=== PATIENT | female | born 1980 | race Two or more races ===

== ENCOUNTER 2024-09-15 14:51 | Inpatient (IN) | payer MEDICAID, OTHER ==
[~2024-09-15] VITALS: Ht 152.4 cm; Wt 59.0 kg
[2024-09-15] MEDS: SODIUM CHLORIDE 0.9% 1,000 ML IV ONE ×2 (02:00→18:52)
--- NOTE | 2024-09-15 15:46 | ED.PDOC ---
General HPI Comments HPI: Poor Historian. 44-year-old female presents to emergency department for evaluation of right sided pain below her right ribcage area radiating to her right abdomen constant. No alleviating or precipitating factors. Onset of symptoms was sudden today at two in the afternoon. Patient was brought in by ambulance for further evaluation. Patient had similar episodes many years ago. Past Medical History: Kidney stones, anemia, asthma Past Surgical History: , hysterectomy, hernia repair No known drug allergies REVIEW OF SYSTEMS: CONSTITUTIONAL: Denies acute: fever, diaphoresis, chills, HEAD: Denies acute: headache, photophobia Eyes: Denies acute: Double vision, vision loss, eye pain, eye discharge. EARS: Denies acute: tinnitus, hearing loss, ear discharge, ear pain, THROAT: Denies acute: sore throat, swelling, difficulty swallowing , pain with swallowing, change in voice. NECK: Denies acute: neck pain, neck swelling, stiff neck. HEART: Denies acute : chest pain, palpitations, LUNGS: Denies acute: SOB, wheezing, cough, hemoptysis ABDOMEN: Denies acute: abdominal pain, Nausea, Vomiting, diarrhea, melena , hematemesis, hematochezia SKIN: Denies acute: rash, redness, lesions, itchiness. EXTREMITIES: Denies acute: calf pain, numbness, tingling, weakness, denies pain in extremity. Denies acute: Low back pain. Neuro: Denies acute: focal neurological deficit, motor or sensory focal neurological deficit, tremors, seizure like activity, confusion, dizziness, change in mental status, loss of bowel or bladder function, cauda equina like symptoms. : Denies acute: dysuria, hematuria, increase in urinary frequency. PSYCH: Denies acute: hallucination, suicidal ideation, homicidal ideation. FEMALE: Denies acute: abnormal vaginal bleeding, foul odor, unusual discharge. PHYSICAL EXAM: General: ----moderate----acute distress, awake and alert. Head: normocephalic, atraumatic. Neck: supple, trachea is midline, no swelling. Throat: Normal phonation. Eyes:, no erythema, no purulent discharge, no proptosis, no icterus. Heart: regular rate, regular rhythm, no significant murmur appreciated. Lungs: no apparent respiratory distress, Able to speak in full sentences. No wheezing, no rhonchi, no crackles. No stridors Clear to auscultation bilaterally. Abdomen: Right-sided abdominal tender to palpation, non distended, soft, no guarding, no rebound, + bowel sounds. Neuro: Awake, Alert, oriented to name, self, situation, follows commands GCS=15. Speech is normal. Skin: no petechia, no purpura, no cyanosis, non-pale, not jaundice. Lower extremities: --no - Pitting edema no deformity, no focal swelling, no calf TTP. Makes eye contact. moves all four extremities. Face: no apparent facial droop. Right CVA tenderness to percussion ED COURSE: Chief Complaint: Flank Pain Time Seen by MD: 15:19 Reviewed notes: Nurses Notes, Allergies Allergies: Coded Allergies: NO KNOWN ALLERGIES (Unverified , 09/15/24) Information Source: Patient Mode of Arrival: EMS Was a procedure done? Was a procedure done?: No Differential Diagnosis Kidney stone (Female): Other (Flank Pain;DDX include Nephrolethiasis, obstructive uropathy, kidney cancer, renal infarct, intraabdominal neoplasm, lower lobe pneumonia, retroperitoneal hemorrhage, pancreatitis, aneurysm, dissection, musculoskeletal, rib contusion/trauma, hematoma, PYLONEPHRITIS, muscle strain, spinal disease. IN A FEMALE) X-Ray, Labs, Meds, VS Vital Signs Date Time Temp Pulse Resp B/P (MAP) Pulse Ox O2 Delivery O2 Flow Rate FiO2 09/15/24 21:07 97.9 69 18 141/82 (101) 100 97.9 09/15/24 19:43 97.8 72 18 141/78 (99) 100 97.8 09/15/24 19:43 72 18 99 Room Air 09/15/24 18:54 130/74 09/15/24 17:07 97.7 85 18 124/74 (91) 98 97.7 09/15/24 14:58 98.1 82 18 132/86 (101) 98 98.1 Lab Test 09/15/24 15:53 09/15/24 15:45 Range/Units White Blood Count 6.3 4.4-10.8 10^3/uL Red Blood Count 4.70 4.0-5.20 10^6/uL Hemoglobin 14.3 12.2-16.2 g/dL Hematocrit 41.1 36.0-46.0 % Mean Corpuscular Volume 87.4 80.0-100.0 fL Mean Corpuscular Hemoglobin 30.4 28.0-32.0 pg Mean Corpuscular Hemoglobin Concent 34.8 32.0-36.0 g/dL Red Cell Distribution Width 13.0 11.8-14.3 % Platelet Count 201 140-450 10^3/uL Mean Platelet Volume 7.9 6.9-10.8 fL Neutrophils (%) (Auto) 64.7 37.0-80.0 % Lymphocytes (%) (Auto) 24.7 10.0-50.0 % Monocytes (%) (Auto) 8.5 0.0-12.0 % Eosinophils (%) (Auto) 1.7 0.0-7.0 % Basophils (%) (Auto) 0.4 0.0-2.0 % Neutrophils # (Auto) 4.1 1.6-8.6 10 ^3/uL Lymphocytes # (Auto) 1.6 0.4-5.4 10 ^3/uL Monocytes # (Auto) 0.5 0-1.3 10 ^3/uL Eosinophils # (Auto) 0.1 0-0.8 10 ^3/uL Basophils # (Auto) 0 0-0.2 10 ^3/uL Nucleated Red Blood Cells 0.1 % Sodium Level 140 136-145 mmol/L Potassium Level 4.0 3.5-5.1 mmol/L Chloride Level 108 H 98-107 mmol/L Carbon Dioxide Level 22 20-31 mmol/L Anion Gap 10 5-15 Blood Urea Nitrogen 15 9-23 mg/dL Creatinine 0.63 0.550-1.02 mg/dL Glomerular Filtration Rate Calc 114 >90 mL/min BUN/Creatinine Ratio 23.8 H 10.0-20.0 Serum Glucose 92 74-106 mg/dL Lactic Acid Level 0.6 0.4-2.0 mmol/L Calcium Level 9.6 8.7-10.4 mg/dL Total Bilirubin 0.4 0.2-1.0 mg/dL Aspartate Amino Transferase (AST) 14 13-40 U/L Alanine Aminotransferase (ALT) 17 7-40 U/L Alkaline Phosphatase 59 46-116 U/L Troponin I High Sensitivity 3 L </=34 ng/L Total Protein 7.4 5.7-8.2 g/dL Albumin 4.8 3.2-4.8 g/dL Lipase 245 H 12-53 U/L Urine Color Light-yellow Yellow Urine Clarity Clear Clear Urine pH 6.5 5.0-9.0 Urine Specific [place] 1.012 1.001-1.035 Urine Protein Negative Negative Urine Ketones Negative Negative Urine Blood Negative Negative /uL Urine Nitrite Negative Negative Urine Bilirubin Negative Negative Urine Urobilinogen Normal Negative mg/dL Urine Leukocyte Esterase Negative Negative /uL Urine RBC <1 0 - 4 /hpf Urine Microscopic WBC < 1 0-5 /HPF Urine Squamous Epithelial Cells Few <5 /hpf Urine Bacteria Few H None Seen /hpf Urine Mucus Few None Seen Urine Glucose Normal Normal mg/dL Current Medications Medications (Trade) Dose Ordered Sig/Massimo Route Start Time Stop Time Status Last Admin Sodium Chloride 1,000 ml @ 1,000 mls/hr Q1H ONCE IV 09/15/24 15:45 09/15/24 16:44 DC 09/15/24 18:52 Fentanyl Citrate 100 mcg ONCE ONCE IV 09/15/24 17:15 09/15/24 17:54 DC 09/15/24 18:54 Ceftriaxone Sodium 50 ml @ 100 mls/hr ONCE ONCE IV 09/15/24 20:15 09/15/24 20:44 DC 09/15/24 23:01 [place] [address] Ph: [phone] DIAGNOSTIC IMAGING Diagnostic Imaging Report : [id number] Signed PATIENT: HUONG WILLS ACCT: [id number] UNIT: [id number] : 1980 LOC: ER ROOM / BED: / AGE / SEX: 44 / F ADM STATUS: REG ER SERVICE [id number] ORDERING PHYSICIAN: JENNIFER RAMIREZ DO PROCEDURE(s): ABPL - CT AB PEL WO CON-NO ORAL OR IV REASON: R FLANK ABD PAIN ORDER NUMBER(s): [id number], ACCESSION NUMBER(s): [id number] EXAM: CT CT AB PEL WO CON-NO ORAL OR IV HISTORY: R FLANK ABD PAIN COMPARISON: None TECHNIQUE: Helical CT images of the abdomen and pelvis were performed without IV contrast. Sagittal and coronal reformatted images were obtained. This CT exam was performed using one or more of the following dose reduction techniques: Automated exposure control, adjustment of the mA and/or kv according to patient size, or the use of iterative reconstruction techniques. Radiation Dose: Abdomen/Pelvis: CTDIvol 5.72 mGy, DLP 268.06 mGy*cm. FINDINGS: CT abdomen: The lung bases are clear. The heart is not enlarged. The noncontrast liver, spleen, gallbladder, pancreas, kidneys, and adrenal glands are unremarkable. No abdominal aortic aneurysm. There is fat stranding deep to the umbilicus (images 84-93, series 5). CT pelvis: No abnormal bowel dilatation, free air, or free fluid. The appendix and urinary bladder are unremarkable. The uterus is surgically absent. IMPRESSION: 1. Fat stranding deep to the umbilicus may be due to postoperative scarring related to prior umbilical herniorrhaphy versus active inflammation. Correlate with focal tenderness. 2. Postoperative changes of hysterectomy. 3. No evidence of bowel obstruction, urinary tract obstruction, acute appendicitis, or other acute process in the abdomen or pelvis. ATED BY: PAULIE GOLDMAN MD DICTATED DATE/TIME: 09/15/24 162 SIGNED BY: PAULIE GOLDMAN MD SIGNED DATE/TIME: 09/15/241628 CC: Time of 1ST Reevaluation: 23:53 Reevaluation 1ST: Improved Patient Education/Counseling: Diagnosis, Treatment Family Education/Counseling: No Family Present Comments Patient presented with the above HPI.----abdominal/flank pain--workup was initiated. patient was found with the above mentioned diagnosis. the following medications were ordered: please refer to order lists of meds and tests obtained by myself Dr. Ramirez. Patient ED course and VS have been stabilized. Patient has been reassessed in the ED and remained in a stable condition. Pertinent incidental findings were discussed with the patient and/or family. Patient/family voices understanding and is agreeable with plan. Patient has been observed in the ED adequate length of time to insure improvement/stability. Escalation of care considered: Consideration of escalation to observation or admission Patient was ADMITTED to the medicine team for further evaluation and treatment of their presentation. All the reports of any imaging studies that were ordered by myself were reviewed by myself. Departure 1 Departure Time of Disposition: 17:10 Impression: Primary Impression: Acute pancreatitis Disposition: 09 ADMITTED INPATIENT Admit to: Tele Condition: Guarded Discharged With: Self Critical Care Note Critical Care Time?: Yes (45 min-critical care time only) I personally scribed for JENNIFER RAMIREZ DO ([email or web address]) on 09/15/24 at 21:46. Electronically submitted by Woo Carter ([email or web address]). JENNIFER RAMIREZ DO Sep 15, 2024 15:46
[2024-09-15 16:20] LABS: Basophils # (auto) 0 10 ^3/uL (0-0.2); Basophils % (auto) 0.4 % (0.0-2.0); Eosinophils # (auto) 0.1 10 ^3/uL (0-0.8); Eosinophils % (auto) 1.7 % (0.0-7.0); Hematocrit 41.1 % (36.0-46.0); Hemoglobin 14.3 g/dL (12.2-16.2); Lymphocytes # (auto) 1.6 10 ^3/uL (0.4-5.4); Lymphocytes % (auto) 24.7 % (10.0-50.0); Mean Corpuscular Hemoglobin 30.4 pg (28.0-32.0); Mean Corpuscular Hgb Conc. 34.8 g/dL (32.0-36.0); Mean Corpuscular Volume 87.4 fL (80.0-100.0); Monocytes # (auto) 0.5 10 ^3/uL (0-1.3); Monocytes % (auto) 8.5 % (0.0-12.0); Neutrophils # (auto) 4.1 10 ^3/uL (1.6-8.6); Neutrophils % (auto) 64.7 % (37.0-80.0); Nucleated Red Blood Cells % 0.1 %; Platelet Count (auto) 201 10^3/uL (140-450); White Blood Cell 6.3 10^3/uL (4.4-10.8)
[2024-09-15 16:31] LABS: Alanine Aminotransferase 17 U/L (7-40); Albumin 4.8 g/dL (3.2-4.8); Alkaline Phosphatase 59 U/L (46-116); Anion Gap 10 (5-15); Aspartate Aminotransferase 14 U/L (13-40); BUN/Creatinine Ratio 23.8 (10.0-20.0); Bilirubin, Total 0.4 mg/dL (0.2-1.0); Blood Urea Nitrogen 15 mg/dL (9-23); Calcium 9.6 mg/dL (8.7-10.4); Carbon Dioxide 22 mmol/L (20-31); Glucose 92 mg/dL (74-106); Sodium 140 mmol/L (136-145); Total Protein 7.4 g/dL (5.7-8.2)
--- NOTE | 2024-09-15 16:32 | DVH ---
EXAM: CT CT AB PEL WO CON-NO ORAL OR IV HISTORY: R FLANK ABD PAIN COMPARISON: None TECHNIQUE: Helical CT images of the abdomen and pelvis were performed without IV contrast. Sagittal a nd coronal reformatted images were obtained. This CT exam was performed using one or more of the foll owing dose reduction techniques: Automated exposure control, adjustment of the mA and/or kv according to patient size, or the use of iterative reconstruction techniques. Radiation Dose: Abdomen/Pelvis: CTDIvol 5.72 mGy, DLP 268.06 mGy*cm. FINDINGS: CT abdomen: The lung bases are clear. The heart is not enlarged. The noncontrast liver, spleen, gallb ladder, pancreas, kidneys, and adrenal glands are unremarkable. No abdominal aortic aneurysm. There i s fat stranding deep to the umbilicus (images 84-93, series 5). CT pelvis: No abnormal bowel dilatation, free air, or free fluid. The appendix and urinary bladder ar e unremarkable. The uterus is surgically absent. IMPRESSION: 1. Fat stranding deep to the umbilicus may be due to postoperative scarring related to prior umbilica l herniorrhaphy versus active inflammation. Correlate with focal tenderness. 2. Postoperative changes of hysterectomy. 3. No evidence of bowel obstruction, urinary tract obstruction, acute appendicitis, or other acute pr ocess in the abdomen or pelvis.
[2024-09-15 16:33] LABS: Chloride 108 mmol/L (98-107); Lipase 245 U/L (12-53)
[2024-09-15 16:45] LABS: Urine Bacteria FEW /hpf (None Seen); Urine Blood Negative /uL (Negative); Urine Clarity Clear (Clear); Urine Color Light-Yellow (Yellow); Urine Mucus FEW (None Seen); Urine Protein, UAD Negative (Negative); Urine Specific Gravity 1.012 (1.001-1.035); Urine Squamous Epithelial Cell FEW /hpf (<5); Urine Urobilinogen Normal (Negative); Urine WBC < 1 /HPF (0-5); Urine pH 6.5 (5.0-9.0)
[2024-09-15] MEDS: fentaNYL CITRATE 100 MCG/2 ML VL IV ONE (18:54)
[2024-09-15] MEDS: cefTRIAXone 1GM/50ML D5W 50 ML IV ONE (23:01)
--- NOTE | 2024-09-15 23:53 | DVH ---
Procedure: XY KUB ABDOMEN SINGLE VIEW Exam Date: 09/15/2024 11:39 PM History: RUQ pain, IBD, r/o perforation Comparison Study: None Technique: AP of the chest AP upright of the abdomen AP supine of the abdomen Findings / IMPRESSION: Nonobstructive bowel-gas pattern. Lung bases are clear. Mild fecal retention throughout the colon. N o radiopaque foreign objects. No acute osseous abnormalities. No evidence of pneumoperitoneum.
[2024-09-15 23:56] VITALS: BP 123/75; PULSE 72; RESP 17; TEMP 97.5; O2SAT 100
[2024-09-16] VITALS (8 sets, daily range): BP systolic 112–131; BP diastolic 73–87; PULSE 61–78; RESP 16–20; TEMP 96.1–97.7; O2SAT 98–100
--- NOTE | 2024-09-16 00:13 | DVH ---
EXAMINATION: XY R RIB XRAY INDICATION: right lower chest pain COMPARISON: None TECHNIQUE: Frontal view of the chest and 2 views of the right ribs history FINDINGS: No focal consolidation, pleural effusion or significant pneumothorax. Normal cardiomediastinal silhou ette. No displaced right rib fracture. IMPRESSION: 1. No acute cardiopulmonary disease. No displaced right rib fracture.
--- NOTE | 2024-09-16 01:37 | DVHHPRES ---
History of Present Illness Resident Creating Document: JOSEFINALEONARDGEGE RESIDENT History of Present Illness Patient is a 44-year-old female with a history of kidney stones presented to the ED with a chief complaint of right upper quadrant, right flank pain which started around 2:00 p.m. in the afternoon today. Patient was apparently well when she started to have sudden onset pain in the right upper quadrant, right flank, nonradiating was severe in intensity and constant not associated with any nausea or vomiting. Patient did not eat anything after the pain started until at night while she was in the hospital waiting where she had a burger, reported that she was given morphine before she ate and that the pain got slightly worse after eating. Patient denies any history of gallstones, alcohol use. She reports of acid reflux on and off, denies weight loss. She reports that she was having blood in and underwent a colonoscopy in May with the gastric group and it revealed hemorrhoids. She does have blood in the stools since the last 1 week, usually blood-streaked stools. Denies weight loss, fever, night sweats. Past medical history: Kidney stones, hemorrhoids, migraine headache Past surgical history: , partial hysterectomy for fibroids, ventral hernia repair Social history: Patient denies smoking, alcohol, drug use and lives with family Home medications: Ibuprofen for migraine Family history: No family history of colon cancer, inflammatory bowel disease Review of Systems Review of Systems Seen and examined at the bedside Reports of pain in the right upper quadrant, right upper flank which is exacerbated by taking deep breaths, no change with position Denies nausea or vomiting Allergies: Coded Allergies: NO KNOWN ALLERGIES (Unverified , 09/15/24) Medications Current Medications Medications Dose Ordered Sig/Massimo Route Start Time Stop Time Status Last Admin Dose Admin Morphine Sulfate 2 mg Q6HPRN PRN IV 09/15/24 23:30 Exam Vital Signs Vital Signs Date Time Temp Pulse Resp B/P (MAP) Pulse Ox O2 Delivery O2 Flow Rate FiO2 09/15/24 23:11 97.7 83 16 145/78 (100) 98 97.7 09/15/24 19:43 Room Air Exam Gen - no pallor, no icterus, no cyanosis, no clubbing, no LAD, no edema . Skin - Patients skin is warm and dry. HEENT - normocephalic, atraumatic, moist mucous membranes. Neck - full ROM, no LAD, no JVD Pulmonary - B/L equal breath sounds, no crackles, no wheezing, no stridor. cardiovascular - regular S1,S2 heard, no added sounds, no murmurs heard. peripheral pulses normal radial 2+, pedal 2+. GI - soft abdomen. Severe Tenderness to palpation in the right upper quadrant, right costophrenic angle. no hepatospleenomegaly. Bowel sounds normoactive Neurological - Patient is A/O X 3 . Bilateral upper extremity strength 5/5, malik ateral lower extremity strength 5/5, no facial droop, normal speech, no tremor, no sensory deficiets. Labs/Xrays Labs Test 09/15/24 15:53 09/15/24 15:45 Range/Units White Blood Count 6.3 4.4-10.8 10^3/uL Red Blood Count 4.70 4.0-5.20 10^6/uL Hemoglobin 14.3 12.2-16.2 g/dL Hematocrit 41.1 36.0-46.0 % Mean Corpuscular Volume 87.4 80.0-100.0 fL Mean Corpuscular Hemoglobin 30.4 28.0-32.0 pg Mean Corpuscular Hemoglobin Concent 34.8 32.0-36.0 g/dL Red Cell Distribution Width 13.0 11.8-14.3 % Platelet Count 201 140-450 10^3/uL Mean Platelet Volume 7.9 6.9-10.8 fL Neutrophils (%) (Auto) 64.7 37.0-80.0 % Lymphocytes (%) (Auto) 24.7 10.0-50.0 % Monocytes (%) (Auto) 8.5 0.0-12.0 % Eosinophils (%) (Auto) 1.7 0.0-7.0 % Basophils (%) (Auto) 0.4 0.0-2.0 % Neutrophils # (Auto) 4.1 1.6-8.6 10 ^3/uL Lymphocytes # (Auto) 1.6 0.4-5.4 10 ^3/uL Monocytes # (Auto) 0.5 0-1.3 10 ^3/uL Eosinophils # (Auto) 0.1 0-0.8 10 ^3/uL Basophils # (Auto) 0 0-0.2 10 ^3/uL Nucleated Red Blood Cells 0.1 % Sodium Level 140 136-145 mmol/L Potassium Level 4.0 3.5-5.1 mmol/L Chloride Level 108 H 98-107 mmol/L Carbon Dioxide Level 22 20-31 mmol/L Anion Gap 10 5-15 Blood Urea Nitrogen 15 9-23 mg/dL Creatinine 0.63 0.550-1.02 mg/dL Glomerular Filtration Rate Calc 114 >90 mL/min BUN/Creatinine Ratio 23.8 H 10.0-20.0 Serum Glucose 92 74-106 mg/dL Lactic Acid Level 0.6 0.4-2.0 mmol/L Calcium Level 9.6 8.7-10.4 mg/dL Total Bilirubin 0.4 0.2-1.0 mg/dL Aspartate Amino Transferase (AST) 14 13-40 U/L Alanine Aminotransferase (ALT) 17 7-40 U/L Alkaline Phosphatase 59 46-116 U/L Troponin I High Sensitivity 3 L </=34 ng/L Total Protein 7.4 5.7-8.2 g/dL Albumin 4.8 3.2-4.8 g/dL Lipase 245 H 12-53 U/L Urine Color Light-yellow Yellow Urine Clarity Clear Clear Urine pH 6.5 5.0-9.0 Urine Specific [place] 1.012 1.001-1.035 Urine Protein Negative Negative Urine Ketones Negative Negative Urine Blood Negative Negative /uL Urine Nitrite Negative Negative Urine Bilirubin Negative Negative Urine Urobilinogen Normal Negative mg/dL Urine Leukocyte Esterase Negative Negative /uL Urine RBC <1 0 - 4 /hpf Urine Microscopic WBC < 1 0-5 /HPF Urine Squamous Epithelial Cells Few <5 /hpf Urine Bacteria Few H None Seen /hpf Urine Mucus Few None Seen Urine Glucose Normal Normal mg/dL Assessment/Plan Assessment/Plan Intractable abdominal pain Possible acute pancreatitis Rule out acute cholecystitis Hematochezia ? Hemorrhoids ? Inflammatory bowel disease - CT abdomen pelvis without contrast shows fat stranding deep to the umbilicus, postoperative changes of hysterectomy, no acute process in the abdominopelvic - ultrasound right upper quadrant pending - KUB shows nonobstructive bowel gas pattern, no evidence of pneumoperitoneum, mild fecal retention throughout the colon - rib x-ray shows no acute fracture or dislocation - lipase elevated > 3 times normal - IV fluids - pain management - triglyceride level pending - stool occult blood pending - patient reported to have colonoscopy done in May 2024 with gastro group revealing hemorrhoids PUD prophylaxis: Protonix Goals of care discussed with the patient for over 29 minutes. Full code Time spent: 41 minutes Plan discussed with Dr. Dobbins Plan discussed with: Patient My Orders Orders - JUANI ROCHA Procedure Category Date Status Time Admit ADMIT 09/15/24 Transmitted 23:09 Stat Ekg For Chest CRISTELA 09/15/24 In Process Pain 23:09 Emergency Dysrhythmia CRISTELA 09/15/24 In Process Protocol 23:09 Kub Abdomen Single XY 09/15/24 Resulted View 23:09 R Rib Xray XY 09/15/24 Resulted 23:09 Npo (Nothing By DIET 09/16/24 Transmitted Mouth) Diet Breakfast Stool Occult Blood LAB 09/15/24 Logged 23:09 Morphine Sulfate PHA 09/15/24 In Process Injection 23:30 Date of Service: Sep 15, 2024 Billing Provider: KETAN DOBBINS MD Common Visit Codes: [id number] INP/OBS CARE (HIGH) Secondary Visit Codes: 03004-[id number] CARE PLAN 30 MINUTES JUANI ROCHA RESIDENT Sep 16, 2024 01:37
[2024-09-16] MEDS ORDERED: ONDANSETRON HCL 4 MG/2 ML VIAL IV PRN (01:45)
[2024-09-16 02:17] LABS: Alanine Aminotransferase 15 U/L (7-40); Albumin 4.2 g/dL (3.2-4.8); Alkaline Phosphatase 57 U/L (46-116); Anion Gap 4 (5-15); BUN/Creatinine Ratio 21.7 (10.0-20.0); Blood Urea Nitrogen 13 mg/dL (9-23); Calcium 9.7 mg/dL (8.7-10.4); Carbon Dioxide 28 mmol/L (20-31); Potassium 4.4 mmol/L (3.5-5.1); Sodium 143 mmol/L (136-145); Total Protein 6.8 g/dL (5.7-8.2); Triglycerides 107 mg/dL (< 150)
[2024-09-16 02:18] LABS: Aspartate Aminotransferase 12 U/L (13-40); Bilirubin, Total 0.3 mg/dL (0.2-1.0); Chloride 111 mmol/L (98-107); Cholesterol 165 mg/dL (< 200); Glucose 111 mg/dL (74-106); HDL Cholesterol 51 mg/dL (40-59); LDL Cholesterol 103 mg/dL (< 100)
[2024-09-16 03:06] LABS: Erythrocyte Sedimentation Rate 8 mm/hr (0-20)
[2024-09-16] MEDS: SODIUM CHLORIDE 0.9% 1,000 ML IV SCH ×2 (07:15→11:06)
--- NOTE | 2024-09-16 08:31 | DVH ---
US ABDOMEN LIMITED HISTORY: cholecystitis COMPARISON: None TECHNIQUE: Transverse and longitudinal grayscale and color sonographic images were obtained of the ab domen. FINDINGS: Liver: - Size: 14.3 cm - Echogenicity: Hyperechoic - Surface Contour: Smooth - Liver Lesion(s): None - Portal Vein: Patent and forward flowing. - Bile Ducts: Normal. The common bile duct measures 3.1 mm. Gallbladder: Stone. The sonographic calderon sign is negative. Pancreas: Portions not obscured by bowel gas are normal. Kidneys: - Right kidney size: 10.6 cm. There is no hydronephrosis, renal calculi, or mass lesion. Aorta and Inferior Vena Cava: The visualized portions of the abdominal aorta and intrahepatic vena ca va are normal. Other: None IMPRESSION: Cholelithiais. Mild hepatic steatosis.
[2024-09-16] MEDS: MORPHINE SULFATE 4 MG/ML SYR/VIAL IV PRN (09:17)
[2024-09-16] MEDS: PANTOPRAZOLE 40 MG/10 ML VIAL INJ IV SCH (11:05)
--- NOTE | 2024-09-16 16:16 | DVHPNRES ---
Progress Note Date Seen: Sep 16, 2024 Resident Creating Document: LORNA JOHNSON RESIDENT Medical Necessity Reason Pt with a Central, PICC or Fol: No Subjective Review of Systems 44-year-old female with a history of kidney stones presented to the ED with a chief complaint of right upper quadrant, right flank pain which started around 2:00 p.m. in the afternoon today. Patient was apparently well when she started to have sudden onset pain in the right upper quadrant, right flank, nonradiating was severe in intensity and constant not associated with any nausea or vomiting. Patient did not eat anything after the pain started until at night while she was in the hospital waiting where she had a burger, reported that she was given morphine before she ate and that the pain got slightly worse after eating. Patient denies any history of gallstones, alcohol use. She reports of acid reflux on and off, denies weight loss. She reports that she was having blood in and underwent a colonoscopy in May with the gastric group and it revealed hemorrhoids. She does have blood in the stools since the last 1 week, usually blood-streaked stools. Denies weight loss, fever, night sweats. Objective vital signs Vital Sign Date Time Temp Pulse Resp B/P (MAP) Pulse Ox O2 Delivery O2 Flow Rate FiO2 09/16/24 13:00 97.0 63 20 126/80 (95) 99 97.0 09/16/24 08:00 Room Air* 0 21 Total Intake and Output 09/15/24 09/15/24 09/16/24 15:00 23:00 07:00 Intake Total 1000 ml 50 ml Balance 1000 ml 50 ml medications Current Medications Medications Dose Ordered Sig/Massimo Route Start Time Stop Time Status Last Admin Dose Admin Morphine Sulfate 2 mg Q6HPRN PRN IV 09/15/24 23:30 09/16/24 09:17 2 MG Pantoprazole Sodium 40 mg DAILY IV 09/16/24 10:00 09/16/24 11:05 40 MG Ondansetron HCl 4 mg Q6HPRN PRN IV 09/16/24 01:45 Sodium Chloride 1,000 ml @ 120 mls/hr Q8H20M IV 09/16/24 09:45 09/16/24 11:06 120 MLS/HR Examination GENERAL: Not in acute distress. HEENT: EOMI, Moist mucous membranes. No scleral icterus. No cervical lymphadenopathy. LUNGS: Clear to auscultation bilaterally. No accessory muscle use. CARDIOVASCULAR: Regular rate and rhythm. No murmur. No JVD. ABDOMEN: Soft, nontender and nondistended. No palpable masses. EXTREMITIES: No edema. Nontender. SKIN: No rashes or lesions. Warm. NEUROLOGIC: Alert and oriented X3 laboratory and microbiology Laboratory Tests 09/16/24 01:51 09/15/24 15:53 Test 09/16/24 01:51 Range/Units Serum Glucose 111 H 74-106 mg/dL Problem List/Assessment/Plan Problem List/Assessment/Plan # Acute pancreatitis secondary to gallstone # Intractable abdominal pain # Rule out acute cholecystitis # Hematochezia ? Hemorrhoids ? Inflammatory bowel disease - CT abdomen pelvis without contrast shows fat stranding deep to the umbilicus, postoperative changes of hysterectomy, no acute process in the abdominopelvic - ultrasound right upper quadrant : shows gallstone, negative calderon's sign - KUB shows nonobstructive bowel gas pattern, no evidence of pneumoperitoneum, mild fecal retention throughout the colon - rib x-ray shows no acute fracture or dislocation - lipase elevated , 245 - IV fluids - Start Clear liq diet when pain subsided - pain management - triglyceride level : 107 - stool occult blood positive - patient reported to have colonoscopy done in May 2024 with gastro group revealing hemorrhoids PUD prophylaxis: Protonix Goals of care discussed with the patient for 23 minutes. Full code Plan discussed with Dr. Parham Plan discussed with: Patient Date of Service: Sep 16, 2024 Billing Provider: YESSI PARHAM MD Common Visit Codes: [id number] INP/OBS CARE(HIGH) LORNA JOHNSON RESIDENT Sep 16, 2024 16:16 YESSI PARHAM MD Sep 16, 2024 22:14
[2024-09-16] MEDS: IBUPROFEN 600 MG TAB PO PRN (20:23)
[2024-09-17 05:00] VITALS: BP 113/72; PULSE 78; RESP 14; TEMP 97; O2SAT 95
[2024-09-17 06:41] LABS: Basophils # (auto) 0 10 ^3/uL (0-0.2); Basophils % (auto) 0.5 % (0.0-2.0); Eosinophils # (auto) 0.2 10 ^3/uL (0-0.8); Eosinophils % (auto) 3.8 % (0.0-7.0); Hematocrit 39.8 % (36.0-46.0); Hemoglobin 13.7 g/dL (12.2-16.2); Lymphocytes # (auto) 1.4 10 ^3/uL (0.4-5.4); Lymphocytes % (auto) 32.3 % (10.0-50.0); Mean Corpuscular Hemoglobin 30.3 pg (28.0-32.0); Mean Corpuscular Hgb Conc. 34.3 g/dL (32.0-36.0); Mean Corpuscular Volume 88.3 fL (80.0-100.0); Monocytes # (auto) 0.4 10 ^3/uL (0-1.3); Monocytes % (auto) 9.7 % (0.0-12.0); Neutrophils # (auto) 2.3 10 ^3/uL (1.6-8.6); Neutrophils % (auto) 53.7 % (37.0-80.0); Platelet Count (auto) 180 10^3/uL (140-450); Red Blood Cells 4.51 10^6/uL (4.0-5.20); Red Cell Distribution Width 13.3 % (11.8-14.3); White Blood Cell 4.3 10^3/uL (4.4-10.8)
[2024-09-17 06:45] LABS: Potassium 4.5 mmol/L (3.5-5.1); Sodium 140 mmol/L (136-145)
[2024-09-17 06:46] LABS: Anion Gap 5 (5-15); Calcium 8.8 mg/dL (8.7-10.4); Carbon Dioxide 27 mmol/L (20-31)
[2024-09-17 06:50] LABS: Chloride 108 mmol/L (98-107)
[2024-09-17 06:51] LABS: BUN/Creatinine Ratio 8.8 (10.0-20.0); Glucose 81 mg/dL (74-106); Lipase 43 U/L (12-53)
[2024-09-17 07:01] LABS: Blood Urea Nitrogen 5 mg/dL (9-23)
[2024-09-17 09:00] VITALS: BP 125/75; PULSE 63; RESP 20; TEMP 97.9; O2SAT 99
[2024-09-17 13:00] VITALS: BP 128/78; PULSE 70; RESP 20; TEMP 96.9; O2SAT 99
[2024-09-17] MEDS ORDERED: PANT40TA2 PO (16:34)
--- NOTE | 2024-09-17 16:39 | DVHDSRES ---
Discharge Summary Date of Admission Resident Creating Document: LORNA JOHNSON RESIDENT Sep 15, 2024 at 23:09 Date of Discharge: Sep 17, 2024 Labs/Diagnostic Data: Laboratory Results Test 09/17/24 05:50 09/16/24 01:51 09/15/24 15:53 09/15/24 15:45 White Blood Count 4.3 10^3/uL (4.4-10.8) Red Blood Count 4.51 10^6/uL (4.0-5.20) Hemoglobin 13.7 g/dL (12.2-16.2) Hematocrit 39.8 % (36.0-46.0) Mean Corpuscular Volume 88.3 fL (80.0-100.0) Mean Corpuscular Hemoglobin 30.3 pg (28.0-32.0) Mean Corpuscular Hemoglobin Concent 34.3 g/dL (32.0-36.0) Red Cell Distribution Width 13.3 % (11.8-14.3) Platelet Count 180 10^3/uL (140-450) Mean Platelet Volume 8.1 fL (6.9-10.8) Neutrophils (%) (Auto) 53.7 % (37.0-80.0) Lymphocytes (%) (Auto) 32.3 % (10.0-50.0) Monocytes (%) (Auto) 9.7 % (0.0-12.0) Eosinophils (%) (Auto) 3.8 % (0.0-7.0) Basophils (%) (Auto) 0.5 % (0.0-2.0) Neutrophils # (Auto) 2.3 10 ^3/uL (1.6-8.6) Lymphocytes # (Auto) 1.4 10 ^3/uL (0.4-5.4) Monocytes # (Auto) 0.4 10 ^3/uL (0-1.3) Eosinophils # (Auto) 0.2 10 ^3/uL (0-0.8) Basophils # (Auto) 0 10 ^3/uL (0-0.2) Nucleated Red Blood Cells 0.0 % Sodium Level 140 mmol/L (136-145) Potassium Level 4.5 mmol/L (3.5-5.1) Chloride Level 108 mmol/L (98-107) Carbon Dioxide Level 27 mmol/L (20-31) Anion Gap 5 (5-15) Blood Urea Nitrogen 5 mg/dL (9-23) Creatinine 0.57 mg/dL (0.550-1.02) Glomerular Filtration Rate Calc 116 mL/min (>90) BUN/Creatinine Ratio 8.8 (10.0-20.0) Serum Glucose 81 mg/dL (74-106) Calcium Level 8.8 mg/dL (8.7-10.4) Lipase 43 U/L (12-53) Erythrocyte Sedimentation Rate 8 mm/hr (0-20) Total Bilirubin 0.3 mg/dL (0.2-1.0) Aspartate Amino Transferase (AST) 12 U/L (13-40) Alanine Aminotransferase (ALT) 15 U/L (7-40) Alkaline Phosphatase 57 U/L (46-116) Total Protein 6.8 g/dL (5.7-8.2) Albumin 4.2 g/dL (3.2-4.8) Triglycerides Level 107 mg/dL (< 150) Cholesterol Level 165 mg/dL (< 200) LDL Cholesterol 103 mg/dL (< 100) HDL Cholesterol 51 mg/dL (40-59) Lactic Acid Level 0.6 mmol/L (0.4-2.0) Troponin I High Sensitivity 3 ng/L (</=34) Urine Color Light-yellow (Yellow) Urine Clarity Clear (Clear) Urine pH 6.5 (5.0-9.0) Urine Specific [place] 1.012 (1.001-1.035) Urine Protein Negative (Negative) Urine Ketones Negative (Negative) Urine Blood Negative /uL (Negative) Urine Nitrite Negative (Negative) Urine Bilirubin Negative (Negative) Urine Urobilinogen Normal mg/dL (Negative) Urine Leukocyte Esterase Negative /uL (Negative) Urine RBC <1 /hpf (0 - 4) Urine Microscopic WBC < 1 /HPF (0-5) Urine Squamous Epithelial Cells Few /hpf (<5) Urine Bacteria Few /hpf (None Seen) Urine Mucus Few (None Seen) Urine Glucose Normal mg/dL (Normal) Other Laboratory Tests 09/17/24 05:50 Brief Hx & Hospital Course: Patient is a 44-year-old female with a history of kidney stones presented to the ED with a chief complaint of right upper quadrant, right flank pain which started around 2:00 p.m. in the afternoon today. Patient was apparently well when she started to have sudden onset pain in the right upper quadrant, right flank, nonradiating was severe in intensity and constant not associated with any nausea or vomiting. Patient did not eat anything after the pain started until at night while she was in the hospital waiting where she had a burger, reported that she was given morphine before she ate and that the pain got slightly worse after eating. Patient denies any history of gallstones, alcohol use. She reports of acid reflux on and off, denies weight loss. She reports that she was having blood in and underwent a colonoscopy in May with the gastric group and it revealed hemorrhoids. She does have blood in the stools since the last 1 week, usually blood-streaked stools. Denies weight loss, fever, night sweats. Past medical history: Kidney stones, hemorrhoids, migraine headache Past surgical history: , partial hysterectomy for fibroids, ventral hernia repair Social history: Patient denies smoking, alcohol, drug use and lives with family Home medications: Ibuprofen for migraine Family history: No family history of colon cancer, inflammatory bowel disease During hospital stay,CT abdomen pelvis without contrast shows fat stranding deep to the umbilicus, postoperative changes of hysterectomy, no acute process in the abdominopelvic. Lipase was elevated greater than 3 times normal, patient was started on IV fluids, pain management.ultrasound right upper quadrant : shows gallstone, negative calderon's sign. Patient's pain was controlled, clear liquid diet was started. Triglyceride level was 107. Patient tolerated diet and the pain subsided. 09/17-patient is hemodynamically stable, clinically stable, no acute distress therefore she has been discharged home with the instructions to follow up with surgeon as outpatient, primary care physician, discharge clinic within 7 days. Patient was also recommended to continue full liquid diet, advanced as tolerated. Avoid fatty fried foods. Discharge medication: Pantoprazole 40 mg daily for the next 30 days. Patient agreed to discharge plan. Operations or Procedures ORDERING PHYSICIAN: JENNIFER RAMIREZ DO PROCEDURE(s): ABPL - CT AB PEL WO CON-NO ORAL OR IV REASON: R FLANK ABD PAIN ORDER NUMBER(s): [id number], ACCESSION NUMBER(s): [id number] EXAM: CT CT AB PEL WO CON-NO ORAL OR IV HISTORY: R FLANK ABD PAIN COMPARISON: None TECHNIQUE: Helical CT images of the abdomen and pelvis were performed without IV contrast. Sagittal and coronal reformatted images were obtained. This CT exam was performed using one or more of the following dose reduction techniques: Automated exposure control, adjustment of the mA and/or kv according to patient size, or the use of iterative reconstruction techniques. Radiation Dose: Abdomen/Pelvis: CTDIvol 5.72 mGy, DLP 268.06 mGy*cm. FINDINGS: CT abdomen: The lung bases are clear. The heart is not enlarged. The noncontrast liver, spleen, gallbladder, pancreas, kidneys, and adrenal glands are unremarkable. No abdominal aortic aneurysm. There is fat stranding deep to the umbilicus (images 84-93, series 5). CT pelvis: No abnormal bowel dilatation, free air, or free fluid. The appendix and urinary bladder are unremarkable. The uterus is surgically absent. IMPRESSION: 1. Fat stranding deep to the umbilicus may be due to postoperative scarring related to prior umbilical herniorrhaphy versus active inflammation. Correlate with focal tenderness. 2. Postoperative changes of hysterectomy. 3. No evidence of bowel obstruction, urinary tract obstruction, acute appendicitis, or other acute process in the abdomen or pelvis. ATED BY: PAULIE GOLDMAN MD DICTATED DATE/TIME: 09/15/241628 SIGNED BY: PAULIE GOLDMAN MD SIGNED DATE/TIME: 09/15/241628 CC: Condition at Discharge: Stable Final Diagnosis/Problems List Acute pancreatitis likely secondary to gallstone Acute biliary colic Acute cholelithiasis History of hemorrhoids Hepatic steatosis History of hysterectomy Discharge Disposition: Home Discharge Instruct/Medications Diet: See Comment Diet comment: Full liquid diet, advanced as tolerated Activity: Light activity Follow Up/Referral: Follow up with primary care physician within 7 days Follow up with discharge clinic appointment within 7 days Follow up with surgeon as outpatient within 7 days Medications: Protonix 40 mg daily for 30 days Discharge Statement: "Patient was advised to return to the ER or call 911 if any headaches, dizziness, shortness of breath, chest pain, abdominal pain, bleeding, fevers, or worsening of medical condition. Patient was counseled about treatment plan, medications, possible side effects, patientverbalized understanding. All questions were answered to the best of my ability. This discharge took greater then 30 minutes in planning, reviewing documentation, counseling the patient, and discussing with other team members." ASSESSMENT ASSESSMENT Assessment Acute pancreatitis Acute biliary colic Acute cholelithiasis Date of Service: Sep 17, 2024 Billing Provider: YESSI PARHAM MD Common Visit Codes: 05720-SRC/OBS DISCH DAY >30min CARMELO CAICEDO Sep 17, 2024 16:39 YESSI PARHAM MD Sep 18, 2024 01:54
[2024-09-17 17:00] VITALS: BP 140/87; PULSE 71; RESP 20; TEMP 98.4; O2SAT 99
[2024-09-17 17:30] VITALS: BP 140/87; PULSE 71; RESP 20; TEMP 98.4; O2SAT 99
--- NOTE | 2024-09-18 09:33 | ECG ---
[facility] Test Date: 2024-09-16 Test Time: 05:26:20 Pat Name: HUONG WILLS Department: Room: 0298 A Gender: F Academic Tutor: ashley : 1980 Requested By: JUANI WOODRUFFJJ Order Number: [id number] Reading MD: Yazan Humphreys Measurements Intervals [place] Rate: 65 P: 66 [place]: 145 QRS: 68 QRSD: 91 T: 17 QT: 423 QTc: 440 Interpretive Statements Sinus rhythm Borderline low voltage, extremity leads Electronically Signed On 09-20-2024 20:16:59 PDT by Yazan Humphreys Please click the below link to view image of tracing.
== END 2024-09-17 18:10 | disposition home or self-care (01) ==
LOC: ER 14:51 → EDBD 14:51 → OVERFLOW 23:09 → WEST WING 23:15
PROVIDERS: ATTEND Emergency Medicine
DX: K80.70 Calculus of gallbladder and bile duct without cholecystitis without obstruction (principal); K85.10 Biliary acute pancreatitis without necrosis or infection; K76.0 Fatty (change of) liver, not elsewhere classified; J45.909 Unspecified asthma, uncomplicated; G43.909 Migraine, unspecified, not intractable, without status migrainosus; Z98.891 History of uterine scar from previous surgery; Z87.442 Personal history of urinary calculi; Z90.710 Acquired absence of both cervix and uterus
CPT/HCPCS: 36415; 71101; 74018; 74176; 76705; 80048; 80053; 80061; 81001; 83605; 83690; 84484; 85025; 85652; 86850; 86870; 86900; 86901; 93005; 96361; 96365; 96375; 99291; G0378; J2470

== ENCOUNTER 2024-12-13 08:10 | Inpatient (IN) | payer MEDICAID ==
[2024-12-12 10:06] LABS: Hematocrit 42.6 % (36.0-46.0); Hemoglobin 14.8 g/dL (12.2-16.2); Mean Corpuscular Hemoglobin 30.9 pg (28.0-32.0); Mean Corpuscular Volume 88.9 fL (80.0-100.0); Nucleated Red Blood Cells % 0.1 %
[2024-12-12 10:13] LABS: Urine Protein, UAD Negative (Negative)
[2024-12-12 10:18] LABS: Alanine Aminotransferase 14 U/L (7-40); Albumin 4.7 g/dL (3.2-4.8); Alkaline Phosphatase 59 U/L (46-116); Anion Gap 8 (5-15); BUN/Creatinine Ratio 16.4 (10.0-20.0); Blood Urea Nitrogen 11 mg/dL (9-23); Calcium 9.7 mg/dL (8.7-10.4); Carbon Dioxide 28 mmol/L (20-31); Chloride 102 mmol/L (98-107); Glucose 87 mg/dL (74-106); Potassium 4.0 mmol/L (3.5-5.1); Sodium 138 mmol/L (136-145); Total Protein 7.9 g/dL (5.7-8.2)
[2024-12-12 10:19] LABS: Bilirubin, Total 0.6 mg/dL (0.2-1.0)
[2024-12-12 10:22] LABS: INR 0.94 (0.9-1.15); Partial Thromboplastin Time 29.0 SEC (24.5-34.5); Prothrombin Time 10.0 sec (9.3-11.8)
[2024-12-13] VITALS (7 sets, daily range): BP systolic 97–110; BP diastolic 47–77; PULSE 82–93; RESP 13–19; TEMP 97.8–98.2; O2SAT 95–98
[~2024-12-13] VITALS: Ht 152.4 cm; Wt 58.7 kg
[~2024-12-13 08:10] MED LIST: ALB5IS NEB; ALBUAER3 IN; CHOL200021 PO
[2024-12-13] MEDS ORDERED: MORPHINE SULFATE 4 MG/ML SYR/VIAL IV PRN (09:15)
[2024-12-13] MEDS: KETOROLAC TROMETH 30 MG/ML 1ML VIAL IV ONE (09:15)
[2024-12-13] MEDS ORDERED: MORPHINE SULFATE INJ 2 MG/ml SYRG IV PRN ×2 (09:57→12:45)
[2024-12-13] MEDS ORDERED: KETAMINE 50mg/ML 1ml syringe ONE ×2 (10:07→10:40)
[2024-12-13] MEDS ORDERED: MIDAZOLAM HCL 2MG/2ML 2ml VIAL (1mg/ml) ONE ×2 (10:07→10:40)
[2024-12-13] MEDS ORDERED: HYDROmorphone HCL 2 MG/ML VL/or syr ONE ×2 (10:07→10:40)
[2024-12-13] MEDS ORDERED: fentaNYL CITRATE 100 MCG/2 ML VL ONE ×2 (10:07→10:40)
[2024-12-13] MEDS ORDERED: GLYCOPYRROLATE 0.2 MG/ML 1ML VIAL ONE ×2 (10:08→10:40)
[2024-12-13] MEDS ORDERED: ROCURONIUM 10MG/ML 10ML VIAL IV ONE ×2 (10:08→10:40)
[2024-12-13] MEDS ORDERED: PROPOFOL 10 MG/ML 20 ML IV ONE ×2 (10:08→10:40)
[2024-12-13] MEDS ORDERED: SUGAMMADEX 200mg/2ml Vial (100MG/ML) IV ONE ×2 (10:08→10:55)
[2024-12-13] MEDS ORDERED: LIDOCAINE 2% (LOCAL ANESTH.) PF 5ml SDV ONE (10:08)
[2024-12-13] MEDS ORDERED: KETOROLAC TROMETH 30 MG/ML 1ML VIAL ONE (10:08)
[2024-12-13] MEDS ORDERED: SODIUM CHLORIDE LOCK 10 ML ONE (10:40)
[2024-12-13] MEDS ORDERED: LIDOCAINE HCL 2% TOP JELLY 5ML TOP ONE (10:40)
[2024-12-13] MEDS ORDERED: LIDOCAINE 1% INJ PF 5ML AMP ONE (10:40)
[2024-12-13] MEDS ORDERED: ONDANSETRON HCL 4 MG/2 ML VIAL ONE (10:40)
[2024-12-13] MEDS ORDERED: NEOSTIGMINE 1 MG/ML INJ (10mg/10ML VIAL) ONE (10:40)
[2024-12-13] MEDS: LIDOCAINE W/ EPINEPHRINE 1% 20ML VIAL ONE (10:45)
[2024-12-13] MEDS: BUPIVACAINE HCL 0.25% P/F 10 ML VIAL ONE (10:45)
--- NOTE | 2024-12-13 10:59 | DVHOP ---
DATE OF SURGERY: 12/13/2024 PREOPERATIVE DIAGNOSES: Cholelithiasis, chronic cholecystitis, biliary colic. POSTOPERATIVE DIAGNOSES: Cholelithiasis, chronic cholecystitis, biliary colic, extensive adhesions from prior surgeries PROCEDURES: Laparoscopy, laparoscopic lysis of adhesions, laparoscopic cholecystectomy SURGEON: Yaya Carlton MD OBSTETRICS GYNECOLOGY MD: Radhames Mead NP ANESTHESIA: General endotracheal. ANESTHESIOLOGIST: Dr. Gotti DESCRIPTION OF PROCEDURE: Under general endotracheal anesthesia with the patient's skin prepped and draped, a supraumbilical incision was made and Veress needle inserted by the hanging drop technique to establish pneumoperitoneum 15 mmHg pressure by insufflation with carbon dioxide. With the abdomen fully distended, the needle was removed and replaced with a 5 mm trocar port through which a 0 degree viewing laparoscope was inserted and under direct vision, 5 and 10 mm ports inserted through the anterior axillary line at the level of the umbilicus and through the subxiphoid midline skin, respectively. Instrumentation was then introduced and laparoscopy revealed extensive adhesions from prior surgeries. These were partially lysed in order to facilitate visualization of the gallbladder, which was quite enlarged. The gallbladder was placed on tension by grasping at the fundus and the gallbladder was then elevated. The cystic duct and cystic artery were identified, circumferentially dissected, skeletonized, and traced into the hepatocystic triangle to minimize the potential for inadvertent injury to the common bile duct. The cystic duct and cystic artery were then divided between metallic clips and subsequently the gallbladder was resected from its liver bed by electrocautery and traction. It was decompressed by aspiration of the bile. The gallbladder was then placed into a specimen extraction bag, which was retrieved through the subxiphoid 10 mm port site. Subsequently, the right upper quadrant was profusely irrigated and inspected meticulously to accomplish complete hemostasis. There was no evidence of bleeding from either the port sites or from the cholecystectomy site. Instrumentation was withdrawn. Pneumoperitoneum was evacuated. Fascia defect closed using 0 Vicryl. Wounds approximated using Monocryl sutures, Dermabond glue, and Steri-Strips. The patient remained stable throughout the procedure and left the operating room following an accurate needle and sponge counts. Her , Edouard, was thoroughly informed at [phone]. Yaya Carlton MD PF/SAY TID: [id number] RECEIPT: [id number]
[2024-12-13] MEDS ORDERED: HYDROmorphone HCL 2 MG/ML VL/or syr IV PRN (11:00)
[2024-12-13] MEDS: HYDROmorphone HCL 2 MG/ML VL/or syr IV PRN ×2 (11:29→11:40)
[2024-12-13] MEDS: ceFAZolin 2 GM/D5W50ml 50 ML IV ONE (11:43)
--- NOTE | 2024-12-13 12:39 | DVHHP2 ---
Review of Systems Allergies: Coded Allergies: NO KNOWN ALLERGIES (Unverified , 09/15/24) Medications Current Medications Medications Dose Ordered Sig/Massimo Route Start Time Stop Time Status Last Admin Dose Admin Morphine Sulfate 2 mg Q4H PRN IV 12/13/24 09:15 12/13/24 13:16 Potassium Chloride/Dextrose/ Sod Cl 1,000 ml @ 120 mls/hr Q8H20M IV 12/13/24 11:00 Hydromorphone HCl 1 mg Q3HPRN PRN IV 12/13/24 11:00 Cefazolin Sodium 50 ml @ 100 mls/hr Q8HR IV 12/13/24 18:00 UNV Exam Vital Signs Vital Signs Date Time Temp Pulse Resp B/P (MAP) Pulse Ox O2 Delivery O2 Flow Rate FiO2 12/13/24 11:49 54 17 110/57 12/13/24 11:45 98 12/13/24 11:00 97.8 97.8 12/13/24 11:00 Room Air 0 12/13/24 11:00 97 Labs/Xrays Labs Test 12/12/24 08:35 Range/Units White Blood Count 5.1 4.4-10.8 10^3/uL Red Blood Count 4.79 4.0-5.20 10^6/uL Hemoglobin 14.8 12.2-16.2 g/dL Hematocrit 42.6 36.0-46.0 % Mean Corpuscular Volume 88.9 80.0-100.0 fL Mean Corpuscular Hemoglobin 30.9 28.0-32.0 pg Mean Corpuscular Hemoglobin Concent 34.8 32.0-36.0 g/dL Red Cell Distribution Width 13.5 11.8-14.3 % Platelet Count 197 140-450 10^3/uL Mean Platelet Volume 8.1 6.9-10.8 fL Neutrophils (%) (Auto) 60.7 37.0-80.0 % Lymphocytes (%) (Auto) 27.3 10.0-50.0 % Monocytes (%) (Auto) 9.1 0.0-12.0 % Eosinophils (%) (Auto) 2.1 0.0-7.0 % Basophils (%) (Auto) 0.8 0.0-2.0 % Neutrophils # (Auto) 3.1 1.6-8.6 10 ^3/uL Lymphocytes # (Auto) 1.4 0.4-5.4 10 ^3/uL Monocytes # (Auto) 0.5 0-1.3 10 ^3/uL Eosinophils # (Auto) 0.1 0-0.8 10 ^3/uL Basophils # (Auto) 0 0-0.2 10 ^3/uL Nucleated Red Blood Cells 0.1 % Prothrombin Time 10.0 9.3-11.8 sec Prothrombin Time INR 0.94 0.9-1.15 Activated Partial Thromboplast Time 29.0 24.5-34.5 SEC Urine Color Light-yellow Yellow Urine Clarity Clear Clear Urine pH 6.5 5.0-9.0 Urine Specific [place] 1.018 1.001-1.035 Urine Protein Negative Negative Urine Ketones Negative Negative Urine Blood Negative Negative /uL Urine Nitrite Negative Negative Urine Bilirubin Negative Negative Urine Urobilinogen Normal Negative mg/dL Urine Leukocyte Esterase Negative Negative /uL Urine RBC <1 0 - 4 /hpf Urine Microscopic WBC 1 0-5 /HPF Urine Squamous Epithelial Cells Few <5 /hpf Urine Bacteria Few H None Seen /hpf Urine Mucus Few None Seen Urine Glucose Normal Normal mg/dL Urine Test Negative Negative Sodium Level 138 136-145 mmol/L Potassium Level 4.0 3.5-5.1 mmol/L Chloride Level 102 98-107 mmol/L Carbon Dioxide Level 28 20-31 mmol/L Anion Gap 8 5-15 Blood Urea Nitrogen 11 9-23 mg/dL Creatinine 0.67 0.550-1.02 mg/dL Glomerular Filtration Rate Calc 112 >90 mL/min BUN/Creatinine Ratio 16.4 10.0-20.0 Serum Glucose 87 74-106 mg/dL Calcium Level 9.7 8.7-10.4 mg/dL Total Bilirubin 0.6 0.2-1.0 mg/dL Aspartate Amino Transferase (AST) 17 13-40 U/L Alanine Aminotransferase (ALT) 14 7-40 U/L Alkaline Phosphatase 59 46-116 U/L Total Protein 7.9 5.7-8.2 g/dL Albumin 4.7 3.2-4.8 g/dL SEPSIS Sepsis Screen Physician Orders Oxygen By Face Mask (12/13/24 09:04) It Consultant (12/13/24 09:04) Notify Anesth. For Changes: (12/13/24 09:04) Pulse Ox Assessment (12/13/24 09:04) Bear Hugger For Temp <94.5f (12/13/24 09:04) May Have Head Of Bed Up (12/13/24 09:04) Follow Iv With Surgeon Orders (12/13/24 09:04) Discharge To Room Per Criteria (12/13/24 09:04) Morphine Sulfate Injection (12/13/24 09:15) To Pacu For Recovery (12/13/24 10:54) Oxygen Via Cool Mist Mask (12/13/24 10:54) Incentive Spirometry Q 1hr (12/13/24 10:54) Clear Liq Diet (12/13/24 Lunch) Incentive Spirometry Q 1hr (12/13/24 10:54) Abdominal Binder (12/13/24 10:54) Sequential Compression Device (12/13/24 10:54) Bilirubin, Total (12/14/24 04:00) Ambulate Every 4hours Q4H (12/13/24 10:54) Page Hospitalist For Admission (12/13/24 10:54) D5w/Sod Chl 0.45%/Kcl 20meq (12/13/24 11:00) Hydromorphone Injection (Dilaudid Inject (12/13/24 11:00) Cefazolin 1gm/50ml (Ancef) (12/13/24 18:00) Admit (12/13/24 12:35) Nitroglycerin Sublingual (Ntrostat Subli (12/13/24 12:45) Morphine Sulfate Injection (12/13/24 12:45) Stat Ekg For Chest Pain (12/13/24 12:35) Notify Md Of Changes From Base (12/13/24 12:35) Filling And Packing Supervisor For 24 Hours (12/13/24 12:35) Emergency Dysrhythmia Protocol (12/13/24 12:35) Rhythm Strips Once Every Shift (12/13/24 12:35) Oxygen By Nasal Cannula (12/13/24 12:35) Hydrocodone-Acet 5/325mg Tab ([place] 5/32 (12/13/24 12:45) Acetaminophen Tablet (Tylenol Tablet) (12/13/24 12:45) Ondansetron Hcl (Zofran) (12/13/24 12:45) Albuterol Medneb (Ventolin Medneb) (12/13/24 12:45) Complete Blood Count (12/14/24 06:00) Comprehensive Metabolic Panel (12/14/24 06:00) Vital Signs Date Time Temp Pulse Resp B/P (MAP) Pulse Ox O2 Delivery O2 Flow Rate FiO2 12/13/24 11:49 54 17 110/57 12/13/24 11:45 51 15 114/60 (78) 98 12/13/24 11:40 57 12 113/62 12/13/24 11:30 57 15 110/59 (76) 100 12/13/24 11:29 64 13 120/67 12/13/24 11:15 88 13 117/69 (85) 99 12/13/24 11:10 74 16 124/74 (91) 97 12/13/24 11:05 79 19 125/71 (89) 97 12/13/24 11:00 97.8 86 19 117/64 (81) 97 97.8 12/13/24 11:00 86 19 97 Room Air 0 12/13/24 11:00 Room Air 0 97 12/13/24 08:24 98.1 79 17 123/72 (89) 99 98.1 Medications Medications Dose Ordered Sig/Massimo Route Start Time Stop Time Status Last Admin Dose Admin Bupivacaine HCl 20 ml STK-MED ONCE .ROUTE 12/13/24 09:17 12/13/24 09:14 DC 12/13/24 10:45 5 ML Hydromorphone HCl 0.25 mg Q10M PRN IV 12/13/24 09:15 12/13/24 09:48 DC 12/13/24 11:49 0.25 MG Hydromorphone HCl 0.5 mg Q10M PRN IV 12/13/24 09:15 12/13/24 09:56 DC 12/13/24 11:40 0.5 MG Lidocaine/ Epinephrine 20 ml STK-MED ONCE .ROUTE 12/13/24 09:17 12/13/24 09:14 DC 12/13/24 10:45 5 ML Assessment/Plan Assessment/Plan see dictated note Plan discussed with: Patient My Orders Orders - NI SALNIAS MD Procedure Category Date Status Time Admit ADMIT 12/13/24 Verified 12:35 Nitroglycerin PHA 12/13/24 Verified Sublingual (Ntrostat 12:45 Morphine Sulfate PHA 12/13/24 Verified Injection 12:45 Stat Ekg For Chest CRISTELA 12/13/24 Verified Pain 12:35 Notify Md Of Changes [facility] 12/13/24 Verified From Base 12:35 Filling And Packing Supervisor For [facility] 12/13/24 Verified 24 Hours 12:35 Emergency Dysrhythmia CRISTELA 12/13/24 Verified Protocol 12:[address] [facility] 12/13/24 Verified Every Shift 12:35 Oxygen By Nasal RT 12/13/24 Verified Cannula 12:35 Hydrocodone-Acet PHA 12/13/24 Verified 5/325mg Tab ([place] 12:45 Acetaminophen Tablet PHA 12/13/24 Verified (Tylenol Tablet) 12:45 Ondansetron Hcl PHA 12/13/24 Verified (Zofran) 12:45 Albuterol Medneb PHA 12/13/24 Verified (Ventolin Medneb) 12:45 Complete Blood Count LAB 12/14/24 Verified 06:00 Comprehensive LAB 12/14/24 Verified Metabolic Panel 06:00 Date of Service: Dec 13, 2024 Billing Provider: NI SALINAS MD Common Visit Codes: [id number] INP/OBS CARE (HIGH) NI SALINAS MD Dec 13, 2024 12:39
[2024-12-13] MEDS ORDERED: ALBUTEROL SULF 2.5 MG/0.5ML(0.5%) NEB SOLN NEB PRN (12:45)
[2024-12-13] MEDS ORDERED: ACETAMINOPHEN 325 MG TAB PO PRN (12:45)
[2024-12-13] MEDS ORDERED: NITROGLYCERIN 0.4 MG SL TAB SL PRN (12:45)
[2024-12-13] MEDS ORDERED: ONDANSETRON HCL 4 MG/2 ML VIAL IV PRN (12:45)
--- NOTE | 2024-12-13 12:55 | DVHHP ---
ADMIT DATE: 12/13/2024 HISTORY OF PRESENT ILLNESS: The patient is a 44-year-old lady who is admitted after she underwent laparoscopic cholecystectomy for cholelithiasis and chronic cholecystitis. The patient at this time denies any significant pain. No chest pain, no shortness of breath, no nausea or vomiting. REVIEW OF SYSTEMS: Review of the rest of the other systems is currently negative. PAST MEDICAL HISTORY: Significant for asthma. MEDICATIONS: She takes albuterol as needed. SOCIAL HISTORY: No history of smoking or alcohol. FAMILY HISTORY: Negative. PHYSICAL EXAMINATION: GENERAL: The patient is awake and alert. VITAL SIGNS: Temperature of 97.8, pulse of 64 per minute, blood pressure 110/59. SHEENT: Unremarkable. NECK: There is no JVD. No pedal edema. LUNGS: Equal bilaterally, no added sounds. CARDIOVASCULAR: S1 and S2 is regular without murmurs. ABDOMEN: Soft. Bowel sounds are hypoactive. NEUROLOGIC: Nonfocal. MUSCULOSKELETAL: Normal. ASSESSMENT AND PLAN: * Asthma for which the patient will be placed on as needed albuterol. * Status post laparoscopic cholecystectomy for cholelithiasis and chronic cholecystitis. The patient will be placed on IV fluids along with pain medications and also a clear liquid diet. Yoan Troncoso MD JLN/EKT TID: [id number] RECEIPT: [id number]
[2024-12-13] MEDS: D5W/SOD CHL 0.45%/KCL 20MEQ 1,000 ML IV SCH (13:30)
[2024-12-13] MEDS ORDERED: ceFAZolin 1GM/50ML 50 ML IV SCH (14:00)
[2024-12-13] MEDS: METOCLOPRAMIDE HCL 5MG/ml INJ 2ml VIAL IV PRN (14:20)
[2024-12-13] MEDS: HYDROcodone-ACET 5/325MG TAB PO PRN (17:08)
[2024-12-13] MEDS: ceFAZolin 1GM/50ML 50 ML IV SCH (18:46)
[2024-12-14] VITALS (7 sets, daily range): BP systolic 103–147; BP diastolic 65–84; PULSE 66–91; RESP 16–17; TEMP 97.5–98; O2SAT 96–100
[2024-12-14 06:42] LABS: Hematocrit 39.5 % (36.0-46.0); Hemoglobin 13.7 g/dL (12.2-16.2); Mean Corpuscular Hemoglobin 31.1 pg (28.0-32.0); Mean Corpuscular Volume 89.8 fL (80.0-100.0); Nucleated Red Blood Cells % 0.0 %
[2024-12-14 07:02] LABS: Alanine Aminotransferase 25 U/L (7-40); Albumin 4.0 g/dL (3.2-4.8); Alkaline Phosphatase 55 U/L (46-116); Anion Gap 7 (5-15); Calcium 8.9 mg/dL (8.7-10.4); Carbon Dioxide 24 mmol/L (20-31); Potassium 4.9 mmol/L (3.5-5.1); Sodium 139 mmol/L (136-145); Total Protein 6.7 g/dL (5.7-8.2)
[2024-12-14 07:03] LABS: BUN/Creatinine Ratio 7.7 (10.0-20.0); Bilirubin, Total 0.5 mg/dL (0.2-1.0); Blood Urea Nitrogen < 5 mg/dL (9-23); Chloride 108 mmol/L (98-107); Glucose 115 mg/dL (74-106)
[2024-12-14] MEDS ORDERED: SUCCINYLCHOLINE CHLORIDE 20 MG/ML 10ML VIAL IV ONE (13:54)
--- NOTE | 2024-12-14 14:43 | DVHDS2 ---
Discharge Summary Date of Admission Dec 13, 2024 at 12:35 Date of Discharge: Dec 14, 2024 Labs/Diagnostic Data: Laboratory Results Test 12/14/24 05:59 12/12/24 08:35 White Blood Count 10.3 10^3/uL (4.4-10.8) Red Blood Count 4.40 10^6/uL (4.0-5.20) Hemoglobin 13.7 g/dL (12.2-16.2) Hematocrit 39.5 % (36.0-46.0) Mean Corpuscular Volume 89.8 fL (80.0-100.0) Mean Corpuscular Hemoglobin 31.1 pg (28.0-32.0) Mean Corpuscular Hemoglobin Concent 34.7 g/dL (32.0-36.0) Red Cell Distribution Width 13.5 % (11.8-14.3) Platelet Count 217 10^3/uL (140-450) Mean Platelet Volume 8.1 fL (6.9-10.8) Neutrophils (%) (Auto) 76.5 % (37.0-80.0) Lymphocytes (%) (Auto) 12.7 % (10.0-50.0) Monocytes (%) (Auto) 10.6 % (0.0-12.0) Eosinophils (%) (Auto) 0.1 % (0.0-7.0) Basophils (%) (Auto) 0.1 % (0.0-2.0) Neutrophils # (Auto) 7.9 10 ^3/uL (1.6-8.6) Lymphocytes # (Auto) 1.3 10 ^3/uL (0.4-5.4) Monocytes # (Auto) 1.1 10 ^3/uL (0-1.3) Eosinophils # (Auto) 0 10 ^3/uL (0-0.8) Basophils # (Auto) 0 10 ^3/uL (0-0.2) Nucleated Red Blood Cells 0.0 % Sodium Level 139 mmol/L (136-145) Potassium Level 4.9 mmol/L (3.5-5.1) Chloride Level 108 mmol/L (98-107) Carbon Dioxide Level 24 mmol/L (20-31) Anion Gap 7 (5-15) Blood Urea Nitrogen < 5 mg/dL (9-23) Creatinine 0.65 mg/dL (0.550-1.02) Glomerular Filtration Rate Calc 113 mL/min (>90) BUN/Creatinine Ratio 7.7 (10.0-20.0) Serum Glucose 115 mg/dL (74-106) Calcium Level 8.9 mg/dL (8.7-10.4) Total Bilirubin 0.5 mg/dL (0.2-1.0) Aspartate Amino Transferase (AST) 22 U/L (13-40) Alanine Aminotransferase (ALT) 25 U/L (7-40) Alkaline Phosphatase 55 U/L (46-116) Total Protein 6.7 g/dL (5.7-8.2) Albumin 4.0 g/dL (3.2-4.8) Prothrombin Time 10.0 sec (9.3-11.8) Prothrombin Time INR 0.94 (0.9-1.15) Activated Partial Thromboplast Time 29.0 SEC (24.5-34.5) Urine Color Light-yellow (Yellow) Urine Clarity Clear (Clear) Urine pH 6.5 (5.0-9.0) Urine Specific [place] 1.018 (1.001-1.035) Urine Protein Negative (Negative) Urine Ketones Negative (Negative) Urine Blood Negative /uL (Negative) Urine Nitrite Negative (Negative) Urine Bilirubin Negative (Negative) Urine Urobilinogen Normal mg/dL (Negative) Urine Leukocyte Esterase Negative /uL (Negative) Urine RBC <1 /hpf (0 - 4) Urine Microscopic WBC 1 /HPF (0-5) Urine Squamous Epithelial Cells Few /hpf (<5) Urine Bacteria Few /hpf (None Seen) Urine Mucus Few (None Seen) Urine Glucose Normal mg/dL (Normal) Urine Test Negative (Negative) Other Laboratory Tests 12/14/24 05:59 Brief Hx & Hospital Course: see dictated note Condition at Discharge: Good Final Diagnosis/Problems List lap bakari Discharge Disposition: Home Discharge Instruct/Medications Diet: Regular Activity: No Restrictions, As Tolerated Follow Up/Referral: schedule appt with dr Carlton in 1 wk Medications: resume home meds script to pharmacy Scheduled Albuterol Sulfate (Ventolin), 2.5 MG NEB PRN, (Reported) Albuterol Sulfate (Ventolin Mdi), 90 MCG IN PRN, (Reported) Cholecalciferol (D3), Unknown Dose PO DAILY, (Reported) Discharge Statement: "Patient was advised to return to the ER or call 911 if any headaches, dizziness, shortness of breath, chest pain, abdominal pain, bleeding, fevers, or worsening of medical condition. Patient was counseled about treatment plan, medications, possible side effects, patientverbalized understanding. All questions were answered to the best of my ability. This discharge took greater then 30 minutes in planning, reviewing documentation, counseling the patient, and discussing with other team members." ASSESSMENT ASSESSMENT Assessment kristina villegas Date of Service: Dec 14, 2024 Billing Provider: NI SALINAS MD Common Visit Codes: 41816-AIX/OBS DISCH DAY >30min NI SALINAS MD Dec 14, 2024 14:43
[2024-12-14] MEDS ORDERED: CEPH500T PO (14:46)
[2024-12-14] MEDS ORDERED: DOCU-94 PO (14:46)
[2024-12-14] MEDS ORDERED: HYDR1TAB97 PO (14:46)
--- NOTE | 2024-12-14 15:08 | DVHDS ---
DATE OF DISCHARGE: 12/14/2024 HISTORY OF PRESENT ILLNESS: The patient is a 44-year-old lady, who was admitted after she underwent laparoscopic cholecystectomy for cholelithiasis and chronic cholecystitis. She has history of asthma. HOSPITAL COURSE: The patient has done well postoperatively. She is tolerating her oral diet. Her liver function tests are within normal limits. The patient will now be discharged home to be on Keflex 500 mg t.i.d. for 7 days, [place] p.r.n. for pain, and Colace p.r.n. for constipation. She will followup with Dr. Mcintyre in 1 week. FINAL DIAGNOSES: * Asthma. * Status post laparoscopic cholecystectomy for cholelithiasis and chronic cholecystitis. Time spent in discharge planning and review of plan with the patient and nursing was 38 minutes. MD ALEKSEY Vargas/SB TID: [id number] RECEIPT: [id number]
--- NOTE | 2024-12-14 16:20 | DVHPN2 ---
Progress Note Date Seen: Dec 14, 2024 Medical Necessity Reason Pt with a Central, PICC or Fol: No Objective vital signs Vital Sign Date Time Temp Pulse Resp B/P (MAP) Pulse Ox O2 Delivery O2 Flow Rate FiO2 12/14/24 13:13 97.9 67 16 115/68 (84) 100 97.9 12/14/24 08:00 Room Air* 0 21 Total Intake and Output 12/13/24 12/13/24 12/14/24 15:00 23:00 07:00 Intake Total 100 ml 680 ml 2090 ml Balance 100 ml 680 ml 2090 ml medications Current Medications Medications Dose Ordered Sig/Massimo Route Start Time Stop Time Status Last Admin Dose Admin Potassium Chloride/Dextrose/ Sod Cl 1,000 ml @ 120 mls/hr Q8H20M IV 12/13/24 11:00 12/14/24 04:05 120 MLS/HR Hydromorphone HCl 1 mg Q3HPRN PRN IV 12/13/24 11:00 Cefazolin Sodium 50 ml @ 100 mls/hr Q8HR IV 12/13/24 18:00 12/14/24 15:07 100 MLS/HR Nitroglycerin 0.4 mg Q5MINP PRN SL 12/13/24 12:45 Morphine Sulfate 2 mg Q30M PRN IV 12/13/24 12:45 Acetaminophen/ Hydrocodone Bitart 1 tab Q6HPRN PRN PO 12/13/24 12:45 12/14/24 12:25 1 TAB Acetaminophen 650 mg Q6HP PRN PO 12/13/24 12:45 Ondansetron HCl 4 mg Q6HPRN PRN IV 12/13/24 12:45 Albuterol 2.5 mg Q4HPRN PRN NEB 12/13/24 12:45 laboratory and microbiology Laboratory Tests 12/14/24 05:59 Test 12/14/24 05:59 Range/Units Serum Glucose 115 H 74-106 mg/dL Problem List/Assessment/Plan Problem List/Assessment/Plan 12/14/24 doing well, wounds clean and well approximated, abdomen appropriately tender, tolerating po, she is being discharged, instructions given to her and her mother at bedside Plan discussed with: Patient, Other EMMA POLLACK MD Dec 14, 2024 16:20
== END 2024-12-14 16:10 | disposition home or self-care (01) | DRG 263 ==
LOC: SUR 08:10 → OVERFLOW 12:35 → EAST 14:52
PROVIDERS: ADMIT Internal Medicine; ATTEND Internal Medicine
PROC: 0FN44ZZ Release Gallbladder, Percutaneous Endoscopic Approach (ICD-10-PCS; 2024-12-13)
PROC: 0FT44ZZ Resection of Gallbladder, Percutaneous Endoscopic Approach (ICD-10-PCS; principal; 2024-12-13 10:05)
DX: K80.10 Calculus of gallbladder with chronic cholecystitis without obstruction (principal); J45.909 Unspecified asthma, uncomplicated; K66.0 Peritoneal adhesions (postprocedural) (postinfection); K59.00 Constipation, unspecified; Z90.49 Acquired absence of other specified parts of digestive tract
CPT/HCPCS: 36415; 80053; 81001; 81025; 85025; 85610; 85730; 86850; 86870; 86900; 86901; G0378; J0330; J1100; J1885; J2003; J2250; J2405; J2704; J3490